=== PATIENT | female | born 1985 | race Caucasian/White ===

== ENCOUNTER 2017-06-28 18:21 | Emergency (ER) | payer SELFPAY ==
[2017-06-28 18:21] VITALS: BP 124/69; PULSE 78; RESP 16; TEMP 36.7; O2SAT 98; BMI 29.0
--- NOTE | 2017-06-28 18:29 | ED.RN ---
RADIOLOGY REQUESTS WAITING ON MD TO ORDER IMAGING PT HAS NUMEROUS COMPLAINTS.
--- NOTE | 2017-06-28 19:45 | RAD_ITS ---
STUDY: X-RAY - LEFT SHOULDER REASON FOR EXAM: Female, 31 years old. Pain. Injury. TECHNIQUE: 2 view(s) of the shoulder. COMPARISON: None. FINDINGS: Normal glenohumeral articulation. Normal acromioclavicular joint. Normal acromion. Normal humeral head and visualized proximal humerus. The soft tissue structures are unremarkable. There is no demonstrated fracture. Normal visualized pulmonary apex. RAD/Shoulder min 2 Views IMPRESSION: Normal x-ray examination of the shoulder. Electronically Signed: Basil Mancini MD at 20:19 EST , Service support ,
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
[2017-06-28 21:22] VITALS: RESP 18
== END 2017-06-28 21:23 | disposition home or self-care (01) ==
PROVIDERS: Emergency Provider Emergency Medicine; Family Provider Family Medicine; PCP Family Medicine
DX: S40.012A Contusion of left shoulder, initial encounter (principal); V86.59XA Driver of other special all-terrain or other off-road motor vehicle injured in nontraffic accident, initial encounter; Y93.9 Activity, unspecified; Y92.9 Unspecified place or not applicable; Z72.0 Tobacco use
CPT/HCPCS: 73030; 99282

== ENCOUNTER 2019-06-24 18:43 | Emergency (ER) | payer SELFPAY ==
[2019-06-24 18:44] VITALS: BP 118/72; PULSE 82; RESP 14; TEMP 36.7; O2SAT 97; BMI 33.3
[2019-06-24 19:01] VITALS: TEMP 36.7
--- NOTE | 2019-06-24 19:18 | ED.VIS.GEN ---
History of Present Illness Chief Complaint: Abd Pain Informant: Patient Onset: Yesterday Current Severity: Moderate Maximum Severity: Moderate Narrative: Patient presents with sharp mid abdominal pain that started late last night. Today she reports more pain through into her back. She reports dry heaves and vomiting. She had a loose bowel movement this morning but no further bowel movements or diarrhea. She denies fever or chills. She is not been able to eat today and states she is even had difficult time drinking water because the thought of eating or drinking makes her ill. She denies prior abdominal surgeries. Past Medical History - Allergies and Home Meds Allergies/Adverse Reactions: Allergies almond Allergy (Verified 06/28/17 18:23) Anaphylaxis Primary Care Physician: Joe Bingham MD [Primary Care Provider] - Elaine Philippe MD [STAFF PHYSICIAN] - As Needed Past Medical History: None Lives: With Family Smoking Status: Never smoker Review of Systems General: Denies: Chills, Fever Eyes: Denies: Visual changes - bilaterally ENT: Denies: Bilateral ear pain Cardiovascular: Denies: Chest pain Respiratory: Denies: Dyspnea, Cough Gastrointestinal: Reports: Abdominal pain, Nausea, Vomiting. Denies: Diarrhea Genitourinary: Denies: Dysuria Musculoskeletal: Denies: Extremity Pain Skin: Denies: Rash Neurological: Denies: Headache Allergy: Denies: Uticaria Physical Exam Vital Signs/Narrative: Vital Signs Temp Pulse Resp BP Pulse Ox 06/24/19 19:01 98.1 F 06/24/19 18:44 98.1 F 82 14 118/72 97 Inital Vital Signs reviewed: Yes General: Well nourished, Well developed Head: Normocephalic ENT: Moist mucous membranes Neck: Supple Cardiovascular: Regular rate, Regular rhythm Respiratory: No distress, CTA bilaterally Abdomen: Soft, Tender - Mid abdominal tenderness.. Negative for: Rebound tenderness Extremities: Nontender Skin: Normal color Neurological: Alert, Oriented x3 Psychological: Normal affect Diagnostic/Tx/Re-eval Impressions Abdomen/Pelvis CT 06/24/19 21:58 IMPRESSION: 1. Cholelithiasis. No biliary dilatation, free fluid, or acute disease identified. 2. Small fat-containing umbilical hernia. Otherwise negative exam. Individualized dose optimization techniques were used for this CT. at 0103 Reported and signed by: Alexei Cadena MD Electronically Signed: Alexei Cadena, at 1:01 EST Tel , Service support , 06/24/19 21:58 Abdomen/Pelvis without Cont [CT] Stat Laboratory Results 06/24/19 06/24/19 06/24/19 19:20 19:20 19:20 WBC 6.8 RBC 4.53 Hgb 14.1 Hct 40.5 MCV 89.4 MCH 31.1 MCHC 34.8 RDW Std Deviation 40.6 RDW Coeff of Kobe 12.5 Plt Count 192 MPV 8.9 Immature Gran % (Auto) 0.100 Neut % (Auto) 75.9 H Lymph % (Auto) 17.0 L Bay % (Auto) 6.0 Eos % (Auto) 0.9 Baso % (Auto) 0.1 Absolute Neuts (auto) 5.2 Absolute Lymphs (auto) 1.16 Nucleated RBC % 0 Sodium 140 Potassium 3.9 Chloride 109 H Carbon Dioxide 28.0 Anion Gap 3 L BUN 12 Creatinine 0.98 Estim Creat Clear Calc 86.93 Est GFR (MDRD) Af Amer 85 Est GFR (MDRD) Non-Af 70 BUN/Creatinine Ratio 12.2 Glucose 86 Calcium 9.0 Total Bilirubin 0.70 Direct Bilirubin 0.19 AST 20 ALT 31 Alkaline Phosphatase 54 Total Protein 7.1 Albumin 3.4 Globulin 3.7 Lipase 84 Serum , Qual NEGATIVE Urine Color Urine Clarity Urine pH Ur Specific [place] Urine Protein Urine Glucose (UA) Urine Ketones Urine Occult Blood Urine Nitrite Urine Bilirubin Urine Urobilinogen Ur Leukocyte Esterase Urine RBC Urine WBC Ur Squamous Epith Cells Urine Bacteria Urine Mucus 06/24/19 20:56 WBC RBC Hgb Hct MCV MCH MCHC RDW Std Deviation RDW Coeff of Kobe Plt Count MPV Immature Gran % (Auto) Neut % (Auto) Lymph % (Auto) Bay % (Auto) Eos % (Auto) Baso % (Auto) Absolute Neuts (auto) Absolute Lymphs (auto) Nucleated RBC % Sodium Potassium Chloride Carbon Dioxide Anion Gap BUN Creatinine Estim Creat Clear Calc Est GFR (MDRD) Af Amer Est GFR (MDRD) Non-Af BUN/Creatinine Ratio Glucose Calcium Total Bilirubin Direct Bilirubin AST ALT Alkaline Phosphatase Total Protein Albumin Globulin Lipase Serum , Qual Urine Color Yellow Urine Clarity Clear Urine pH 7.0 Ur Specific [place] 1.010 Urine Protein 15 H Urine Glucose (UA) Normal Urine Ketones 50 H Urine Occult Blood Negative Urine Nitrite Negative Urine Bilirubin 1 H Urine Urobilinogen 1 H Ur Leukocyte Esterase 100 H Urine RBC 0 SEEN Urine WBC 0-5 SEEN Ur Squamous Epith Cells 0-5 SEEN Urine Bacteria 0 SEEN Urine Mucus 1+ - Medical Decision Making Patient was given Toradol and Zofran along with IV fluids. Test results are reviewed with her. She does have evidence of gallstones but no surrounding erythema. She is not focally tender to this area. She is more tender in the epigastrium and there is evidence of a fat-containing umbilical hernia. This was discussed with her. If it continues to bother her or she feels that it is getting worse she can follow-up with surgery on an elective basis. She is given return instructions. She wishes to just take ibuprofen at home for pain. ED Disposition - Plan for ED Patient: Disposition: Home or Assisted Living Diagnosis: Abdominal pain Instructions: ABDOMINAL PAIN, Unknown Cause, (Female) Referrals: Joe Bingham MD [Primary Care Provider] - Elaine Philippe MD [STAFF PHYSICIAN] - As Needed Additional Instructions: Your CT scan shows a small hernia near your umbilicus that contains fat only - it does not contain intestine. If this continues to bother you, you can follow-up with surgery.
[2019-06-24] MEDS: Ondansetron 4 MG/2 ML Vial IV (19:24)
[2019-06-24] MEDS: 0.9% Normal Saline 1,000 ML 150 ML IV (19:24)
[2019-06-24] MEDS: Ketorolac 30 MG/ML Syringe IV (19:38)
[2019-06-24 20:08] LABS: Absolute Lymphocyte Count 1.16 X10^3/uL (0.83-4.51); Absolute Neutrophil Count 5.2 X10^3/uL (2.0-7.7); Basophil# 0.01 X10^3/uL; Basophil% 0.1 % (0-1); Eosinophil# 0.06 X10^3/uL; Eosinophils% 0.9 % (0-5); Hematocrit 40.5 % (37-47); Hemoglobin 14.1 g/dL (12.0-15.0); Lymphocyte # 1.16 X10^3/ul (4.0); Mean Corp Hgb Conc 34.8 g/dL (32-36); Mean Corpuscular Hgb 31.1 pg (27.0-32.0); Mean Corpuscular Volume 89.4 fL (81-99); Mean Platelet Vol. 8.9 fl (6.2-12.0); Monocyte# 0.41 X10^3/uL; NRBC Flagged by Analyzer 0 % (0-5); Neutrophil # 5.19 X10^3/uL (2.7-7.7); Neutrophil % 75.9 % (47-70); Platelet Count 192 K/mm3 (150-450); RBC Distribution Width CV 12.5 % (11.6-14.6); RBC Distribution Width SD 40.6 fl (35.1-43.9); Red Blood Count 4.53 M/mm3 (4.2-5.4); White Blood Count 6.8 K/mm3 (4.4-11.0)
[2019-06-24 20:16] LABS: Internal QC Validated? YES +Cl - CLEAR BKGD; Pregnancy, Serum, hCG Quali. NEGATIVE Negative
[2019-06-24 20:23] LABS: AST(SGOT) 20 U/L (15-37); Alanine Aminotransfer ALT/SGPT 31 U/L (13-56); Albumin, Serum 3.4 g/dL (3.2-5.0); Alkaline Phosphatase 54 U/L (45-117); Anion Gap 3 (5-15); BUN 12 mg/dL (7-18); BUN/Creat Ratio 12.2 RATIO (10-20); Bilirubin, Direct 0.19 mg/dL (0.00-0.30); Chloride 109 mmol/L (98-107); Creatinine, Serum 0.98 mg/dL (0.55-1.02); EST Glomerular Filtration Rate 70 mL/min (>60); Est Glom Filt Rate - Afr Amer 85 mL/min (>60); Estimated Creatinine Clearance 86.93 ml/min; Globulin 3.7 g/dL (2.2-4.2); Glucose 86 mg/dL (74-106); Lipase 84 U/L (73-393); Potassium 3.9 mmol/L (3.5-5.1); Protein, Total 7.1 g/dL (6.4-8.2); Sodium Level 140 mmol/L (136-145)
[2019-06-24 21:01] LABS: Red Blood Cells-Urine 0 SEEN /hpf (0-5)
[2019-06-24 21:10] LABS: Color, Urine Yellow (Yellow); Glucose, Dipstick Normal (Normal); Ketone-Dipstick 50 mg/dl (Negative); Leukocyte Esterase-Dipstick 100 /ul (Negative); Nitrite-Dipstick Negative (Negative); Occult Blood-Urine Negative /ul (Negative); Protein-Dipstick 15 mg/dl (Negative); Urine Clarity Clear (Clear); Urine Urobilinogen 1 mg/dl (Normal)
[2019-06-24 21:13] LABS: Urine Bilirubin Dipstick 1 mg/dL (Negative)
[2019-06-24 21:16] LABS: Squamous Epithelial Cells - UA 0-5 SEEN /hpf (5-10); White Blood Cells 0-5 SEEN /hpf (0-5)
[2019-06-24 21:17] LABS: Bacteria 0 SEEN /hpf (None Seen); Mucous, Urine 1+ /hpf (<or=2+)
[2019-06-24 21:50] VITALS: BP 120/69; PULSE 72; RESP 14; O2SAT 97
--- NOTE | 2019-06-24 21:58 | CT_ITS ---
HISTORY: UMBILICAL PAIN,PT ARRIVES WITH MID EPIGASTRIC ABD PAIN. NO CHANGE IN BOWEL OR BLADDER HABITS. EXAMINATION: CT Abdomen And Pelvis W/O Contrast Injection TECHNIQUE: Helically acquired images were obtained of the abdomen and pelvis without oral or IV contrast as per renal stone protocol. A radiation dose optimization technique was used for this scan. IV Contrast dosage and agent: None. Oral contrast: None. COMPARISON: None FINDINGS: Lower thorax: Clear. No pleural effusion or pericardial effusion. Numerous gallstones. No gallbladder wall thickening or pericholecystic inflammatory change. No biliary dilatation. Limited non-infusion exam. The liver and spleen are upper normal in size. Normal pancreas. Both kidneys are normal in position. No renal or ureteral calculi and no hydronephrosis or hydroureter. The adrenal glands are not enlarged. Abdominal aorta is normal in caliber. No ascites or retroperitoneal lymph node enlargement. GI tract: No obstruction. Normal appendix. Pelvis: Anteverted uterus which is normal in size. Poor distention of the urinary bladder. No free fluid or lymph node enlargement. Bones: No acute osseous abnormality. Ventral abdominal Wall: Small fat-containing umbilical hernia. CT/Abdomen/Pelvis without Cont IMPRESSION: 1. Cholelithiasis. No biliary dilatation, free fluid, or acute disease identified. 2. Small fat-containing umbilical hernia. Otherwise negative exam. Individualized dose optimization techniques were used for this CT. at 0103 Reported and signed by: Alexei Cadena MD Electronically Signed: Alexei Cadena, at 1:01 EST Tel , Service support ,
[2019-06-24] MEDS: HYDROcodone Bitartrate/Apap 5/325 Tablet PO (22:06)
[2019-06-24 23:04] VITALS: BP 121/76; PULSE 76; RESP 14; O2SAT 99
[2019-06-25 01:22] VITALS: BP 118/74; PULSE 75; RESP 16; O2SAT 99
== END 2019-06-25 01:23 | disposition home or self-care (01) ==
PROVIDERS: Emergency Provider Emergency Medicine; PCP Family Medicine
DX: R10.9 Unspecified abdominal pain (principal); K42.9 Umbilical hernia without obstruction or gangrene; K80.20 Calculus of gallbladder without cholecystitis without obstruction
CPT/HCPCS: 74176; 80048; 80076; 81001; 83690; 84703; 85025; 96361; 96374; 96375; 99284; J7030; J2405

== ENCOUNTER 2023-08-14 19:28 | Emergency (ER) | payer MEDICAID, SELFPAY ==
[2023-08-14 19:29] VITALS: BP 122/66; PULSE 77; RESP 18; TEMP 36.1; O2SAT 100; BMI 31.8
--- NOTE | 2023-08-14 19:52 | CT_ITS ---
INDICATION: Trauma EXAMINATION: CT CHEST WITHOUT CONTRAST - CT Chest W/O Contrast Injection TECHNIQUE: Helically acquired images were obtained of the chest. A radiation dose optimization technique was used for this scan. IV Contrast dosage and agent: None. COMPARISON: None. FINDINGS: LUNGS, PLEURA AND LARGE AIRWAYS: No masses, consolidation, or edema. No pleural effusion or thickening. No pneumothorax. THYROID: No thyroid lesions. HEART AND PERICARDIUM: Heart size is normal. No pericardial effusion. CORONARY ARTERIES: Coronary artery calcification is not seen. VESSELS: Thoracic aorta is not dilated. MEDIASTINUM AND MAGALIS: No mediastinal or hilar adenopathy. Esophagus is unremarkable. No hiatal hernia. UPPER ABDOMEN: No acute pathology. BONES: Nondisplaced fracture of the manubrium as seen on image 42 of series 8 with adjacent, retromanubrial fat stranding but no focal fluid collection. CT/Chest without Contrast IMPRESSION: Nondisplaced manubrial fracture. Slight anterior mediastinal stranding/contusion but no focal fluid collection. Electronically Signed: Shaw Gomez MD (Brooks) at 20:23 EDT Reading Location ID and State: [facility] / [place] , Service support ,
--- NOTE | 2023-08-14 19:52 | CT_ITS ---
STUDY: CT BRAIN WITHOUT CONTRAST REASON FOR EXAM: Female, 37 years old. trauma, fall from ladder RADIATION DOSAGE (If Supplied By Facility): CTDIvol = ( 44.99 ) mGy, DLP = ( 829.85 ) mGycm TECHNIQUE: Transaxial CT imaging of the brain was performed without administration of intravenous contrast material. Individualized dose optimization techniques were used for this CT. COMPARISON: No relevant priors. FINDINGS: Left lateral scalp soft tissue swelling/laceration. Normal calvarium. Normal size ventricles and extra-axial spaces for the patient''s age. Normal white matter tracts of the cerebral hemispheres. Normal basal ganglia and thalami. Normal brainstem. Normal cerebellum. There is no intracranial hemorrhage. There are no findings of an acute ischemic infarction. Normal visualized paranasal sinuses. CT/Brain/Head without Contrast IMPRESSION: No acute intracranial hemorrhage or mass effect. Left lateral scalp soft tissue swelling/laceration. Electronically Signed: Shaw Gomez MD (Brooks) at 20:17 EDT ,
--- NOTE | 2023-08-14 19:52 | CT_ITS ---
STUDY: CT CERVICAL SPINE WITHOUT CONTRAST REASON FOR EXAM: Female, 37 years old. Neck pain, trauma RADIATION DOSAGE (If Supplied By Facility): CTDIvol = ( 27.44 ) mGy, DLP = ( 584.15 ) mGycm TECHNIQUE: High resolution transaxial imaging was performed without contrast material. Sagittal and coronal images were reconstructed. Individualized dose optimization techniques were used for this CT. COMPARISON: None FINDINGS: Normal craniovertebral junction. Normal anterior atlantoaxial articulation. Normal odontoid process. There is straightening of the normal cervical lordosis. No cervical spine fracture. C2-3: Normal endplates. Normal disc height and morphology. Normal central canal and intervertebral neuroforamina. C3-4: Normal endplates. Normal disc height and morphology. Normal central canal and intervertebral neuroforamina. C4-5: Normal endplates. Normal disc height and morphology. Normal central canal and intervertebral neuroforamina. C5-6: Normal endplates. Normal disc height and morphology. Normal central canal and intervertebral neuroforamina. C6-7: Normal endplates. Normal disc height and morphology. Normal central canal and intervertebral neuroforamina. C7-T1: Normal endplates. Normal disc height and morphology. Normal central canal and intervertebral neuroforamina. Normal visualized soft tissue structures. CT/Spine Cervical without Contras IMPRESSION: No cervical spine fracture or traumatic subluxation. Electronically Signed: Shaw Gomez MD (Brooks) at 20:20 EDT Reading Location ID and State: [facility] / [place] , Service support ,
--- NOTE | 2023-08-14 19:53 | ED.VIS.FALL ---
HPI HPI - Fall History of Present Illness Chief Complaint: Fall Narrative Narrative: 37-year-old female who denies significant past medical history presents with head pain, chest pain, and left shoulder pain after fall off a ladder. She states she was at home putting up wallpaper. She was on a 4 foot ladder which was on a bench that was 2 feet high. She completed a project and was getting down and fell backwards. She states that her head struck a marble table, but she denies loss of consciousness. She may have seen stars. She sustained a small laceration to the left side of her head. She believes her tetanus immunization was last year and current. She states that this happened around noon, approximately 8 hours ago. She had to go outside and sit down because she felt nauseated. She had gone to urgent care where they told her she had a concussion but she needed imaging because she is complaining of left-sided anterior chest pain and muscle tightness in her left trapezial area. PFSH PFSH Medical History no medical history Home Medications Control 1 tab PO DAILY 05/17/16 [History Last Taken Unknown] lisdexamfetamine 50 mg capsule (Vyvanse) 50 mg PO 08/14/23 [History Last Taken Unknown] ondansetron 4 mg disintegrating tablet 4 mg PO Q6H PRN nausea and vomiting #20 tabs 08/14/23 [Rx Last Taken Unknown] oxycodone-acetaminophen 5 mg-325 mg tablet (Percocet) 1 tab PO Q6H PRN pain 3 days #12 tabs 08/14/23 [Rx Last Taken Unknown] Allergy/AdvReac Type Severity Reaction Status Date / Time almond Allergy Anaphylaxis Verified 08/14/23 19:32 Social History Smoking Status: Never smoker ROS ROS ED ROS Narrative Constitutional: No fever, no chills. HEENT: No sore throat. Left-sided paraspinal/trapezial neck pain. No loss of vision. No rhinorrhea. Cardiovascular: Left-sided anterior chest pain. No palpitations. No pedal edema. Respiratory: No cough, no shortness of breath. Abdominal: No abdominal pain. Positive nausea and vomiting. Genitourinary: No dysuria. No hematuria. Musculoskeletal: No myalgias. Left shoulder arthralgias. Neurologic: Positive headaches. No dizziness. No lightheadedness. Skin: No rash. No change in color. Psychiatric: No depression. No anxiety. EXAM Physical Exam Narrative Exam Narrative: Afebrile. Vital signs noted. HEENT: Normocephalic. Less than 1 cm abrasion without active bleeding on the left occipital area. No skin gaping. PERRL, EOMI. Neck soft and supple. No point tenderness or step off. Cardiovascular: Regular rate and rhythm. No murmurs, rubs, or gallops appreciated. Mild tenderness palpation left anterior chest wall, no crepitance. Respiratory: No tachypnea. Lungs clear to auscultation bilaterally. Gastrointestinal: Abdomen soft, nontender, with normoactive bowel sounds. No rebound or guarding. Neurological: Awake. Alert. Oriented x 3. Nonfocal, nonlateralizing. Able to raise arms above head except for decreased range of motion of left shoulder secondary to pain. Ambulatory in ED. Able to stand and transfer. Skin: No rash. Normal color. No pallor. Musculoskeletal: No pedal edema. Full range of motion extremities. DTRs equal and symmetric. Const Vital Signs: 08/14/23 19:29 08/14/23 20:34 Temperature 97 F L Temperature Source Temporal Pulse Rate 77 Respiratory Rate 18 Respiratory Effort Normal Blood Pressure 122/66 H Blood Pressure Mean 84 Pulse Ox 100 Oxygen Delivery Method Room Air Room Air MDM MDM MDM Narrative Medical decision making narrative: In the differential diagnosis would be intracranial hemorrhage and chest wall contusion versus rib fractures. I have lower suspicion for cervical neck fracture as most of her pain is paraspinal and more trapezial. She is nauseated so she was administered Zofran. She believes her immunization for tetanus, diphtheria, and acellular pertussis is up-to-date. She feels she had it last year. I do not feel this is a laceration that requires closure, and additionally she has presented more than 6 hours since the incident. In order to rule out fracture, CT of the brain, cervical spine, and CT of the thorax will be obtained. I have low suspicion for pneumothorax because she has equal breath sounds and her pulse ox is 100% on room air without evidence of hypoxia. I reviewed the radiology reports of the CT of the brain which shows no acute intracranial hemorrhage or mass effect, there is a left lateral scalp soft tissue swelling. This consistent with hematoma/contusion. I reviewed the radiology report for the CT of the cervical spine and there is no evidence of fracture. Additionally, I reviewed the CT report for the CT of the thorax which shows a nondisplaced manubrium fracture without fluid collection posteriorly, but there is fat stranding. Initially I discussed the patient with the ER physician at [facility] who suggested that I speak with the trauma surgeon on-call, Dr. Perez. It was not felt that she requires transfer for nondisplaced manubrial fracture and that she should be sent home with pain medications. I wrote her for 12 Percocet tablets and she received 1 here along with Zoida ELENAT's. I feel she can be discharged to follow-up after discussion with trauma at [facility]. She will follow-up with her primary care provider. She will perform activity as tolerated. Return instructions to the emergency department were reviewed. Disposition is discharged home, in stable condition. History & Record Review Discussion w/independent historian: Patient and Friend Radiography Diagnostic Testing: Clinical Impression(s) from Imaging Studies Brain CT 08/14/23 19:52 IMPRESSION: No acute intracranial hemorrhage or mass effect. Left lateral scalp soft tissue swelling/laceration. Electronically Signed: Shaw Gomez MD (Brooks) at 20:17 EDT , Cervical Spine CT 08/14/23 19:52 IMPRESSION: No cervical spine fracture or traumatic subluxation. Electronically Signed: Shaw Gomez MD (Brooks) at 20:20 EDT , Chest CT 08/14/23 19:52 IMPRESSION: Nondisplaced manubrial fracture. Slight anterior mediastinal stranding/contusion but no focal fluid collection. Electronically Signed: Shaw Gomez MD (Brooks) at 20:23 EDT , Discharge Plan Triage Chief Complaint: Fall ED Provider: Ignacio Magaña Dx/Rx/DC Orders Clinical Impression: Fall from ladder, Closed fracture of manubrium, Hematoma of scalp Instructions: ED Head Injury (Adult), ED Sternum Fracture Prescriptions: New ondansetron 4 mg tablet,disintegrating 4 mg PO Q6H PRN (Reason: nausea and vomiting) Qty: 20 0RF oxycodone-acetaminophen [Percocet] 5-325 mg tablet 1 tab PO Q6H PRN (Reason: pain) 3 Days Qty: 12 0RF No Action Control 1 TAB 1 tab PO DAILY lisdexamfetamine [Vyvanse] 50 mg capsule 50 mg PO Primary Care Provider: Davis Garcia LIBRARY CLERICAL ASSISTANT Referrals: Joe Bingham MD [Non-Staff] - 3-5 Days Disposition Disposition: Home, Self Care
[2023-08-14] MEDS: Ondansetron ODT 4 MG Tablet PO (20:32)
[2023-08-14] MEDS: Oxycodone/Apap 5/325 Tablet PO (20:40)
[2023-08-14 20:59] VITALS: BP 118/80; PULSE 88; RESP 16; TEMP 36.7; O2SAT 99
== END 2023-08-14 21:04 | disposition home or self-care (01) ==
PROVIDERS: Emergency Provider Emergency Medicine; PCP Nurse Practitioner Primary Care; Visit Provider Emergency Medicine
DX: S22.21XA Fracture of manubrium, initial encounter for closed fracture (principal); W11.XXXA Fall on and from ladder, initial encounter; Y93.E9 Activity, other interior property and clothing maintenance; Y92.009 Unspecified place in unspecified non-institutional (private) residence as the place of occurrence of the external cause; Z79.3 Long term (current) use of hormonal contraceptives; S00.03XA Contusion of scalp, initial encounter
CPT/HCPCS: 70450; 71250; 72125; 99283